=== PATIENT | male | born 1960 | race Caucasian/White ===

== ENCOUNTER → 2021-09-25 | Outpatient (CLI) | payer BC ==
--- NOTE | 2021-09-25 09:38 | CT ---
EXAMINATION TYPE: CT abdomen pelvis w con CT DLP: 630.6 mGycm, Automated exposure control for dose reduction was used. DATE OF EXAM: 09/25/2021 9:16 AM COMPARISON: None. CLINICAL INDICATION:Male, 61 years old with history of R31.0 gross hematuria; Gross hematuria, pressu re and uncomfortable feeling made worse by walking TECHNIQUE: Axial CT of the abdomen and pelvis. Sagittal and coronal reformats were created on a [employer] workstation. Contrast used:100 mL of Isovue 300 with IV Contrast, Oral contrast used: with Oral Contrast FINDINGS: LOWER CHEST: Unremarkable ABDOMEN LIVER: Diffusely hypoattenuating parenchyma. GALLBLADDER AND BILE DUCTS: Unremarkable. PANCREAS: Unremarkable. SPLEEN: Calcified granulomas present. ADRENAL GLANDS: Unremarkable. KIDNEYS AND URETERS: No evidence of hydronephrosis or renal calculus. The ureters are unremarkable. PELVIS BLADDER: There is a central and peripherally partially calcified lesion within the gallbladder which appears adhered to the left bladder wall on the nondependent portion. This lesion measures up to 2.4 cm the adjacent wall appears slightly thickened possibly measuring up to 12 mm. REPRODUCTIVE: Unremarkable. ABDOMEN & PELVIS STOMACH AND BOWEL: No evidence of bowel obstruction. Scattered clonic diverticula present. PERITONEUM: No evidence of pneumoperitoneum or free fluid. VASCULATURE: Mild atherosclerotic calcifications are present throughout the abdominal aorta and its b ranches. No evidence of aortic aneurysm. MUSCULOSKELETAL: No acute osseous abnormalities. Mild disc degeneration changes are present throughou t the thoracolumbar spine. LYMPH NODES: No gross evidence for lymphadenopathy. SOFT TISSUE/ABDOMINAL WALL: Unremarkable IMPRESSION: 1. Partially calcified lesion adhered to the left bladder wall measuring up to 2.4 cm with underlyin g adjacent bladder wall thickening. Cystoscopy is recommended for further evaluation. 2. Clonic diverticulosis. 3. Hepatic steatosis.
== END | disposition home or self-care (01) ==
LOC: RADCTMAIN 06:52
PROVIDERS: ATTEND Family Medicine
DX: R31.0 Gross hematuria (principal)
CPT/HCPCS: 74177; Q9967

== ENCOUNTER → 2021-10-17 | Outpatient (CLI) | payer BC ==
--- NOTE | 2021-10-19 08:18 | XR ---
IVP WITHOUT TOMOGRAMS: CLINICAL HISTORY: Gross hematuria Technique: Following intravenous administration of 50 cc Omnipaque 300, multiple spot images are obta ined. COMPARISON: None. The preliminary film of the abdomen reveals no significant abnormality. No definite nephrolithiasis i s seen. Following intravenous administration of contrast material, sequential films of the abdomen were obtai tru. There is prompt and symmetrical excretion of the contrast by both kidneys which demonstrate nor mal size and configuration. The collecting systems and visualized portions of the ureters reveal no abnormality. There is no mass or obstruction visualized. There is gradual accumulation of contrast material in the urinary bladder. The filling defect is noted within the left portion of the urinary b ladder compatible with the mass seen at CT. Prostate glandular enlargement and calcifications noted. The post-voiding film shows minimal residual contrast in the collecting systems and urinary bladder. IMPRESSION: Mass Defect within the urinary bladder. Neoplasm is not excluded. Recommend direct visualization and tissue diagnosis.
== END | disposition home or self-care (01) ==
LOC: RADFLMAIN 08:46
PROVIDERS: ATTEND Urology
DX: R31.0 Gross hematuria (principal)
CPT/HCPCS: 74400; Q9967

== ENCOUNTER 2021-11-10 21:28 | Emergency (ER) | payer BC ==
[2021-11-10 22:09] VITALS: TEMP 97.9
[2021-11-11 00:47] LABS: Basophils # (A) 0.1 k/uL (0-0.2); Basophils % (A) 1 %; Eosinophils # (A) 0.2 k/uL (0-0.7); Eosinophils % (A) 2 %; HCT 50.3 % (39.0-53.0); HGB 17.1 gm/dL (13.0-17.5); Lymphocytes # (A) 1.5 k/uL (1.0-4.8); Lymphocytes % (A) 13 %; MCH 29.9 pg (25.0-35.0); MCHC 33.9 g/dL (31.0-37.0); MCV 88.1 fL (80.0-100.0); Mean Platelet Volume 7.6; Monocytes # (A) 0.6 k/uL (0-1.0); Monocytes % (A) 5 %; Neutrophils # (A) 8.9 k/uL (1.3-7.7); Neutrophils % (A) 78 %; Platelet Count 317 k/uL (150-450); RBC 5.71 m/uL (4.30-5.90); RDW 12.5 % (11.5-15.5); WBC 11.4 k/uL (3.8-10.6)
[2021-11-11 00:57] LABS: Partial Thromboplastin Time 25.6 sec (22.0-30.0); Prothrombin Time 10.9 sec (9.0-12.0)
[2021-11-11 01:00] LABS: Albumin 4.9 g/dL (3.5-5.0); Calcium 9.7 mg/dL (8.4-10.2); Total Bilirubin 0.6 mg/dL (0.2-1.3)
--- NOTE | 2021-11-11 01:19 | ED ---
Male Urogenital HPI - General Chief complaint: Urogenital Stated complaint: Urinating blood,PO bladder surgery Time Seen by Provider: 11/11/21 01:19 Source: patient, family, RN notes reviewed, old records reviewed Mode of arrival: ambulatory Limitations: no limitations - History of Present Illness Initial comments: This is a 61-year-old male DF for evaluation he presents today for evaluation regards to severe abdominal pain inability and he is passing blood. Patient is not on blood thinners. He did have a recent Resendiz placed secondary to prostate bladder surgery MD Complaint: other (Unable to urinate, blood in the urine) -: hour(s) Location: penis Radiation: none Severity: moderate Severity scale (1-10): 7 Consistency: constant Improves with: none Worsens with: none recent surgery Reports: urinary retention, blood in urine - Related Data Previous Rx's Medication Instructions Recorded Cephalexin [Keflex] 500 mg PO TID 10 Days #30 cap 11/12/21 Allergies Allergy/AdvReac Type Severity Reaction Status Date / Time No Known Allergies Allergy Verified 11/11/21 11:30 Review of Systems ROS Statement: Those systems with pertinent positive or pertinent negative responses have been documented in the HPI. ROS Other: All systems not noted in ROS Statement are negative. Past Medical History Past Medical History: Cancer Additional Past Medical History / Comment(s): Bladder cancer, tumor debulking History of Any Multi-Drug Resistant Organisms: None Reported Past Surgical History: Bladder Surgery Additional Past Surgical History / Comment(s): Hemorriodectomy Past Psychological History: No Psychological Hx Reported Smoking Status: Never smoker Past Alcohol Use History: Occasional Past Drug Use History: None Reported General Exam Limitations: no limitations General appearance: alert, in no apparent distress Head exam: Present: atraumatic, normocephalic, normal inspection Eye exam: Present: normal appearance, PERRL, EOMI. Absent: scleral icterus, conjunctival injection, periorbital swelling ENT exam: Present: normal exam, mucous membranes moist Neck exam: Present: normal inspection. Absent: tenderness, meningismus, lymphadenopathy Respiratory exam: Present: normal lung sounds bilaterally. Absent: respiratory distress, wheezes, rales, rhonchi, stridor Cardiovascular Exam: Present: regular rate, normal rhythm, normal heart sounds. Absent: systolic murmur, diastolic murmur, rubs, gallop, clicks GI/Abdominal exam: Present: soft, normal bowel sounds. Absent: distended, te nderness, guarding, rebound, rigid Extremities exam: Present: normal inspection, full ROM, normal capillary refill. Absent: tenderness, pedal edema, joint swelling, calf tenderness Back exam: Present: normal inspection Neurological exam: Present: alert, oriented X3, CN II-XII intact Psychiatric exam: Present: normal affect, normal mood Skin exam: Present: warm, dry, intact, normal color. Absent: rash Course Vital Signs 11/10/21 11/11/21 11/11/21 22:04 01:58 03:42 Temperature 97.9 F Pulse Rate 79 70 60 Respiratory 16 16 16 Rate Blood Pressure 175/134 157/105 79/63 O2 Sat by Pulse 97 96 94 L Oximetry 11/11/21 11/11/21 03:45 04:24 Temperature Pulse Rate 57 L 63 Respiratory 20 16 Rate Blood Pressure 100/73 144/97 O2 Sat by Pulse 96 96 Oximetry - Reevaluation(s) Reevaluation #1: 11/11/21 Medical record is reviewed Patient improved here in the emergency department Patient informed results and questions answered Medical Decision Making - Medical Decision Making 61 male DF for evaluation, patient's having possibly hemorrhagic cystitis versus hematuria from prior procedure. Patient has fully placed with significant output feels improved will follow-up with his urologist going forward - Lab Data Result diagrams: 11/11/21 00:34 11/11/21 00:34 Lab Results 11/11/21 11/11/21 11/11/21 Range/Units 00:25 00:34 00:34 WBC 11.4 H (3.8-10.6) k/uL RBC 5.71 (4.30-5.90) m/uL Hgb 17.1 (13.0-17.5) gm/dL Hct 50.3 (39.0-53.0) % MCV 88.1 (80.0-100.0) fL MCH 29.9 (25.0-35.0) pg MCHC 33.9 (31.0-37.0) g/dL RDW 12.5 (11.5-15.5) % Plt Count 317 (150-450) k/uL MPV 7.6 Neutrophils % 78 % Lymphocytes % 13 % Monocytes % 5 % Eosinophils % 2 % Basophils % 1 % Neutrophils # 8.9 H (1.3-7.7) k/uL Lymphocytes # 1.5 (1.0-4.8) k/uL Monocytes # 0.6 (0-1.0) k/uL Eosinophils # 0.2 (0-0.7) k/uL Basophils # 0.1 (0-0.2) k/uL PT 10.9 (9.0-12.0) sec INR 1.0 (<1.2) APTT 25.6 (22.0-30.0) sec Sodium (137-145) mmol/L Potassium (3.5-5.1) mmol/L Chloride (98-107) mmol/L Carbon Dioxide (22-30) mmol/L Anion Gap mmol/L BUN (9-20) mg/dL Creatinine (0.66-1.25) mg/dL Est GFR (CKD-EPI)AfAm (>60 ml/min/1.73 sqM) Est GFR (CKD-EPI)NonAf (>60 ml/min/1.73 sqM) Glucose (74-99) mg/dL Calcium (8.4-10.2) mg/dL Total Bilirubin (0.2-1.3) mg/dL AST (17-59) U/L ALT (4-49) U/L Alkaline Phosphatase (38-126) U/L Total Protein (6.3-8.2) g/dL Albumin (3.5-5.0) g/dL Urine Color Urine Appearance (Clear) Urine RBC (0-5) /hpf Urine WBC (0-5) /hpf Urine Bacteria (None) /hpf Blood Type O Positive Blood Type Recheck O Pos Bld Type Recheck Status No Antibody Screen NEGATIVE Spec Expiration Date 11/14/2021232411/11/21 11/11/21 Range/Units 00:34 00:34 WBC (3.8-10.6) k/uL RBC (4.30-5.90) m/uL Hgb (13.0-17.5) gm/dL Hct (39.0-53.0) % MCV (80.0-100.0) fL MCH (25.0-35.0) pg MCHC (31.0-37.0) g/dL RDW (11.5-15.5) % Plt Count (150-450) k/uL MPV Neutrophils % % Lymphocytes % % Monocytes % % Eosinophils % % Basophils % % Neutrophils # (1.3-7.7) k/uL Lymphocytes # (1.0-4.8) k/uL Monocytes # (0-1.0) k/uL Eosinophils # (0-0.7) k/uL Basophils # (0-0.2) k/uL PT (9.0-12.0) sec INR (<1.2) APTT (22.0-30.0) sec Sodium 138 (137-145) mmol/L Potassium 4.0 (3.5-5.1) mmol/L Chloride 97 L (98-107) mmol/L Carbon Dioxide 25 (22-30) mmol/L Anion Gap 16 mmol/L BUN 11 (9-20) mg/dL Creatinine 1.08 (0.66-1.25) mg/dL Est GFR (CKD-EPI)AfAm 85 (>60 ml/min/1.73 sqM) Est GFR (CKD-EPI)NonAf 74 (>60 ml/min/1.73 sqM) Glucose 120 H (74-99) mg/dL Calcium 9.7 (8.4-10.2) mg/dL Total Bilirubin 0.6 (0.2-1.3) mg/dL AST 34 (17-59) U/L ALT 45 (4-49) U/L Alkaline Phosphatase 99 (38-126) U/L Total Protein 8.0 (6.3-8.2) g/dL Albumin 4.9 (3.5-5.0) g/dL Urine Color Red Urine Appearance Turbid (Clear) Urine RBC >182 H (0-5) /hpf Urine WBC 93 H (0-5) /hpf Urine Bacteria Rare H (None) /hpf Blood Type Blood Type Recheck Bld Type Recheck Status Antibody Screen Spec Expiration Date Disposition Clinical Impression: Hematuria, Urinary retention Disposition: HOME SELF-CARE Condition: Good Instructions (If sedation given, give patient instructions): Urinary Retention in Men (ED), Hematuria (ED) Is patient prescribed a controlled substance at d/c from ED?: No Referrals: None,Stated [REFERRING] - 1-2 days Time of Disposition: 06:40
[2021-11-11 01:26] LABS: Bacteria,Urine Rare /hpf; WBC,Urine 93 /hpf (0-5)
[2021-11-11 01:33] LABS: Appearance,Urine Turbid (Clear)
[2021-11-11 01:34] LABS: Color,Urine Red; RBC,Urine >182 /hpf (0-5)
[2021-11-11] MEDS ORDERED: MORPHINE SULFATE 4 MG/ML SYRINGE IVP STA (03:30)
[2021-11-11 04:27] VITALS: BP 144/97; PULSE 63; RESP 16
[2021-11-11] MEDS ORDERED: SODIUM CHLORIDE 0.9% 1,000 ML IV STA (04:56)
[2021-11-11] MEDS ORDERED: cefTRIAXone IN SWFI 1,000 MG/10 ML SYRINGE IVP STA (04:56)
== END 2021-11-11 07:26 | disposition home or self-care (01) ==
LOC: EC 21:28
DX: R31.9 Hematuria, unspecified (principal); R33.9 Retention of urine, unspecified; Z48.816 Encounter for surgical aftercare following surgery on the genitourinary system
CPT/HCPCS: 36415; 86900; 86901; 80053; 85025; 85610; 85730; 86850; 81001; 87086; 99283; 96374; 96375; 96361; J2270; J0696

== ENCOUNTER 2021-11-11 11:07 | Emergency (ER) | payer BC ==
[2021-11-11 11:31] VITALS: TEMP 98
[2021-11-11] MEDS ORDERED: LIDOCAINE 2% URO-JET JELLY 5 ML KIT URETHRAL ONE (11:45)
--- NOTE | 2021-11-11 12:46 | ED ---
General Adult HPI - General Chief complaint: Recheck/Abnormal Lab/Rx Stated complaint: Cath issue Time Seen by Provider: 11/11/21 11:36 Source: patient, RN notes reviewed, old records reviewed Mode of arrival: ambulatory Limitations: no limitations - History of Present Illness Initial comments: 61-year-old male with suspected obstructed Resendiz catheter and hematuria. Patient had full catheter placed this morning for urinary retention and hematuria. He states that he had gone home and developed increased suprapubic pressure and was urinating blood around the catheter. No fever. No vomiting. He had recent tumor resection of the bladder performed about 2 weeks ago and then had been doing well postoperatively. - Related Data Previous Rx's Medication Instructions Recorded Cephalexin [Keflex] 500 mg PO TID 10 Days #30 cap 11/12/21 Allergies Allergy/AdvReac Type Severity Reaction Status Date / Time No Known Allergies Allergy Verified 11/11/21 11:30 Review of Systems ROS Statement: Those systems with pertinent positive or pertinent negative responses have been documented in the HPI. ROS Other: All systems not noted in ROS Statement are negative. Past Medical History Past Medical History: Cancer Additional Past Medical History / Comment(s): Bladder cancer, tumor debulking History of Any Multi-Drug Resistant Organisms: None Reported Past Surgical History: Bladder Surgery Additional Past Surgical History / Comment(s): Hemorriodectomy Past Psychological History: No Psychological Hx Reported Smoking Status: Never smoker Past Alcohol Use History: Occasional Past Drug Use History: None Reported General Exam Limitations: no limitations General appearance: alert, in no apparent distress Head exam: Present: atraumatic, normocephalic Eye exam: Present: normal appearance, PERRL ENT exam: Present: normal exam Neck exam: Present: normal inspection. Absent: tenderness Respiratory exam: Present: normal lung sounds bilaterally. Absent: respiratory distress Cardiovascular Exam: Present: regular rate, normal rhythm GI/Abdominal exam: Present: soft, tenderness (Mild suprapubic tenderness). Absent: distended exam: Present: normal inspection. Absent: scrotal swelling Extremities exam: Present: normal inspection, normal capillary refill Neurological exam: Present: alert, oriented X3, CN II-XII intact. Absent: motor sensory deficit Psychiatric exam: Present: normal affect, normal mood Skin exam: Present: warm, dry, intact Course Vital Signs 11/11/21 11/11/21 11/11/21 11:29 11:40 14:37 Temperature 98 F Pulse Rate 117 H 86 100 Respiratory 20 16 20 Rate Blood Pressure 138/81 130/68 130/80 O2 Sat by Pulse 99 98 98 Oximetry 11/11/21 16:52 Temperature Pulse Rate 86 Respiratory 16 Rate Blood Pressure 130/68 O2 Sat by Pulse 98 Oximetry - Reevaluation(s) Reevaluation #1: 11/11/21 15:00 Time of discharge the catheter did obstruct again. This required additional irrigation. I discussed the case with Dr. Valdez who recommended additional irrigation. I irrigated a total of 3 L with significant clot extraction. Awaiting reevaluation for patent catheter evaluation. Medical Decision Making - Medical Decision Making Resendiz is replaced in the emergency Department with a 20-[place]. He has hemorrhagic urine but this does appear to be flowing freely his pain is improved. I discussed case with Dr. Valdez covering for urology. Did clot requiring further irrigation. I did discuss the case with Dr. Valdez second time who indicated that additional fluids be flushed. I personally flushed 3 L of normal saline through the catheter. Disposition Clinical Impression: Urinary retention, Hematuria Disposition: HOME SELF-CARE Condition: Fair Prescriptions: Cephalexin [Keflex] 500 mg PO TID 10 Days #30 cap Is patient prescribed a controlled substance at d/c from ED?: No Referrals: Margaret Youngblood DO [Primary Care Provider] - 1-2 days Marco Antonio Hsieh MD [STAFF PHYSICIAN] - 1-2 days Time of Disposition: 12:46
[2021-11-11] MEDS ORDERED: MORPHINE SULFATE 4 MG/ML SYRINGE IM STA (15:23)
[2021-11-11 16:54] VITALS: BP 130/68; PULSE 86; RESP 16
== END 2021-11-11 16:54 | disposition home or self-care (01) ==
LOC: EC 11:07
DX: R31.9 Hematuria, unspecified (principal); R33.9 Retention of urine, unspecified
CPT/HCPCS: 96372; 99282 ×2; 51702 ×2; J2270

== ENCOUNTER → 2022-10-07 | Outpatient (CLI) | payer BC ==
--- NOTE | 2022-10-07 09:54 | XR ---
EXAMINATION TYPE: XR chest 2V DATE OF EXAM: 10/07/2022 9:14 AM COMPARISON: Chest radiographs from 03/26/2010 TECHNIQUE: XR chest 2V Frontal and lateral views of the chest. CLINICAL INDICATION:Male, 62 years old with history of C67.9 MALIGNANT NEOPLASM OF BLADDER, UNSPECIFI ED; FINDINGS: Lungs/Pleura: There is no evidence of pleural effusion, focal consolidation, or pneumothorax. Pulmonary vascularity: Unremarkable. Heart/mediastinum: Cardiomediastinal silhouette is unremarkable. Musculoskeletal: No acute osseous pathology. IMPRESSION: No acute cardiopulmonary disease/process.
--- NOTE | 2022-10-07 10:36 | CT ---
EXAMINATION TYPE: CT urogram wo/w con DATE OF EXAM: 10/07/2022 COMPARISON: 09/25/2021 HISTORY: bladder ca CT DLP: 1269 mGycm CONTRAST: Performed and with IV Contrast, patient injected with 100 mL of Isovue 370. CT Urography was performed with unenhanced followed by enhanced images of the kidneys, ureters and ur inary bladder. Delayed images were obtained. 3d reconstruction was performed at a separate work sta tion. FINDINGS: KIDNEYS/BLADDER: No hydronephrosis. No nephrolithiasis. Simple cyst lower pole right kidney measuri ng 1.1 cm. Previously noted partially calcified mass left urinary bladder wall has been excised. Ther e is deformity of the left bladder wall presumably postsurgical in nature. No evidence recurrent mass . LUNG BASES-: No visible nodule. No infiltrate. LIVER/GB: No calcified gallstones. No space occupying hepatic lesion. Biliary tree is of normal ca liber. PANCREAS: No inflammation. No distinct mass. SPLEEN: No splenic enlargement. No lesion seen. ADRENALS: No nodule. No thickening. BOWEL: Normal appendix. Normal bowel caliber. No inflammation. GENITAL ORGANS: No gross abnormality. LYMPH NODES: No greater than 1cm abdominal or pelvic lymph nodes are appreciated. AORTA: No significant abnormality. OSSEOUS STRUCTURES: No significant abnormality is seen. OTHER: No significant additional abnormality is seen. IMPRESSION: 1. Previously noted partially calcified mass left urinary bladder wall has been excised. There is def ormity of the left bladder wall presumably postsurgical in nature. No evidence recurrent mass.
== END | disposition home or self-care (01) ==
LOC: RADCTMAIN 08:59
PROVIDERS: ATTEND Urology
DX: C67.9 Malignant neoplasm of bladder, unspecified (principal); N28.1 Cyst of kidney, acquired; N32.89 Other specified disorders of bladder
CPT/HCPCS: 71046; 74178; 74400; Q9967